=== PATIENT | female | born 1955 | race African-American/Black ===

== ENCOUNTER 2016-12-28 14:51 | Inpatient (IN) | payer OTHER ==
[~2016-12-28] VITALS: Ht 157.5 cm; Wt 128.6 kg
[2016-12-28] VITALS (7 sets, daily range): BP systolic 63–74; BP diastolic 31–45
--- NOTE | ~2016-12-28 | HC ---
[facility] [place] [address] CONSULTATION Name: HOLLY MAYERS Room #: 462-P ADM IN M.R.#: [id number] Admission: 12/28/16 Attend Phys: Saige Dunn Discharge: Date of : 55 Report #: [id number] THIS REPORT FOR: //name// CC: Peter Knowles ATTENDING PHYSICIAN: Dr. Manning. REASON FOR CONSULTATION: Acute on chronic kidney disease. HISTORY OF PRESENT ILLNESS: Unfortunately very little history is available on this 61-year-old patient, transferred from the longterm facility at [facility]. She within the last several months had a catastrophic ruptured thoracic aortic aneurysm. At [facility], had surgery, apparently had prolonged shock, prolonged multisystem failure, severe lung injury and has been unweanable from the ventilator since that time. I have no real records of any of that or any preexisting conditions. I will try to find family. There was none here right now, to try and get more history, very little in the way of any records have come with her. PAST MEDICAL HISTORY: Otherwise known. The records here show a history of hypertension, stroke, [place], hepatitis C and now the fact that she has been bleeding at the nursing center and transferred here. She is on the chronic vent as mentioned. REVIEW OF SYSTEMS: Cannot be taken. SOCIAL HISTORY: Cannot be taken. FAMILY HISTORY: Cannot be taken. PHYSICAL EXAMINATION: GENERAL: This is a very ill-appearing patient. There is bleeding from her gums, bleeding from her nose. She is awake and answering simple questions, following simple commands. SKIN: Quite swollen. SKELETAL: Shows her to be well developed, well nourished. HEENT: Extraocular movements are full. She has reasonable vision apparently. No scleral icterus. Hearing appears to be intact. Mucous membranes are moist. NECK: Slightly stiff. No JVD is appreciated. CHEST: Shows diminished breath sounds with some crackles and wheezes. HEART: Regular but distant. ABDOMEN: Distant, quite tender, decreased bowel sounds. EXTREMITIES: Show extreme swelling and anasarca throughout. LABORATORY DATA: Hemoglobin is 5.9. White count 7.2, platelets 182, 6% bands. Coags show an INR of 15.7, protime 163. Sodium 130, potassium 3.9, chloride 90, bicarbonate 25, BUN 209, creatinine 6.5, albumin 1.1. [address] [address] CONSULTATION Name: HOLLY MAYERS Room #: 462-P ADM IN M.R.#: [id number] Admission: 12/28/16 Attend Phys: Saige Dunn Discharge: Date of : 55 Report #: [id number] ASSESSMENT: Acute on chronic kidney disease. Reportedly her creatinine has been gradually rising with creatinine of 5 when she was at [facility] recently and was up to 6.5. Urine output is down. She is extremely volume overloaded. Certainly could be some degree of compartment syndrome or anasarca creating renal edema and decreased functioning. None of this though explains or addresses the fact that she has this severe coagulopathy, she is bleeding from old sites and she is quite hypotensive and with the heart situation also is unknown, I really have no records to go by. Again we will try to find the family. Certainly does not seem like a very good candidate for any dialysis with that type of therapy. Certainly would need some resuscitation of her coagulopathy for which we could even consider something like CRRT possibly in the morning after she receives blood and blood products from the hematology consult. We will certainly follow her carefully along with you in ICU. <ELECTRONICALLY SIGNED> By: Markie Soto MD 12/31/16 1115 1722 1001 Markie Soto MD /nt
--- NOTE | ~2016-12-28 | H ---
[facility] [place] [address] HISTORY AND PHYSICAL Name: HOLLY MAYERS Room #: 241-P ADM IN M.R.#: [id number] Admission: 12/28/16 Attend Phys: Saige Dunn Discharge: Date of : 55 Report #: [id number] THIS REPORT FOR: //name// CC: Peter Knowles DATE OF SERVICE: 12/28/2016 CHIEF COMPLAINT: Bleeding. HISTORY OF PRESENT ILLNESS: The patient is a 61-year-old female transferred from [facility] for evaluation of bleeding. All the history is obtained by reviewing electronic records and speaking with Dr. Knowles. She apparently had a ruptured thoracic aneurysm. There was emergently repair at [facility] some time ago. She had usual postoperative complications of respiratory failure requiring ventilation and subsequently placement of a tracheostomy tube and PEG tube. She subsequently transferred to [facility] for attempts at ventilator weaning, although this was unsuccessful. She has been deemed a non-weanable chronic ventilator patient at this point and has had additional complications of renal failure. It has been reported to me that her discharge creatinine from the LTAC facility was approximately 5.5 last week. This morning, the nursing staff at the skilled facility noted bleeding from multiple locations and she was directed to the Emergency Room. Thereupon admission, she had been found to have a significant coagulopathy and progressive renal failure with elevated BUN and creatinine, a significant anemia as well with hemoglobin 5.9. PAST MEDICAL HISTORY: Thoracic aneurysm repair, acute renal failure, hepatitis C, hypertension, history of stroke, history of myocardial infarction. PAST SURGICAL HISTORY: As above. FAMILY HISTORY: Unknown. SOCIAL HISTORY: Unknown. ALLERGIES: Unknown. MEDICATIONS: List is not available. I did speak with the nurse at the facility who said she had been receiving aspirin 81 mg. REVIEW OF SYSTEMS: She opens her eyes to her name. She nods yes or no and was denying any pain. PHYSICAL EXAMINATION: [facility] [address] [place] [address] HISTORY AND PHYSICAL Name: HOLLY MAYERS Room #: 241-P [facility].#: [id number] Admission: 12/28/16 Attend Phys: Saige Dunn Discharge: Date of : 55 Report #: [id number] VITAL SIGNS: Temperature 36.5, pulse 80, respirations 21, blood pressure 66/31 ranging 71/29, O2 sat 100% on ventilator. GENERAL: She is awake, opens her eyes and looks chronically ill. HEENT: There is some dry blood at the lips and around the tracheostomy site. HEART: Regular rhythm. LUNGS: Clear to auscultation. ABDOMEN: Protuberant, soft, scattered bowel sounds. PEG in place. EXTREMITIES: 1-2+ edema throughout. NEUROLOGIC: As mentioned, she does open her eyes to her name, seems to respond yes or no. LABORATORY DATA: Hemoglobin is 5.9, platelet count 182, INR is 15 with PTT of 71, fibrinogen is 286, sodium 130, potassium 3.9, creatinine 6.5, BUN 29. ASSESSMENT: 1. Disseminated intravascular coagulation. 2. Hemorrhagic shock. 3. Anemia due to acute blood loss. 4. Chronic respiratory failure, ventilator dependent. 5. History of thoracic aortic aneurysm. 6. Acute renal failure. PLAN: She will be admitted to ICU and blood products had been ordered. I have spoken to Dr. Knowles about her situation. This appears to be multiorgan failure situation which in this case would be terminal. I do not see how she can be a reasonable dialysis candidate given the respiratory failure and non-weanable vent. Multiple consultants have been called to provide support opinions, but she remains critically ill with a poor outcome expected. <ELECTRONICALLY SIGNED> By: Chase Manning MD 12/29/16 0856 1655 1726 Chase Manning MD /nt
--- NOTE | ~2016-12-28 | HC ---
[facility] [place] [address] CONSULTATION Name: HOLLY MAYERS Room #: 241-P ADM IN M.R.#: [id number] Admission: 12/28/16 Attend Phys: Saige Dunn Discharge: Date of : 55 Report #: [id number] THIS REPORT FOR: //name// CC: Eh Bella MD REASON FOR CONSULTATION: Coagulopathy and bleeding. HISTORY OF PRESENT ILLNESS: Minimal records on chart. I have not yet had a chance to talk to Dr. Manning. This is a 61-year-old female, if I understand correctly, had been over at , had an urgent or maybe emergent thoracic aneurysm repair and was at [facility] and then also in LTAC and it sounds like she had developed some bleeding recently. Since her thoracic aneurysm repair, she has had complications of respiratory failure with chronic ventilation support, also tracheostomy tube and a PEG tube for feeding. She was transferred to [facility] for attempts at ventilator weaning, this was unsuccessful. She was deemed non-weanable, chronic ventilator patient at that patient and was admitted and had additional complications of renal failure. I believe they have elected not to do dialysis. Evidently this past morning, she was noted to have bleeding on multiple occasions and was transferred to the emergency room. Here in the ER, her initial protime was 163.2 with an INR of 15.7, an APTT of 71.8 and a fibrinogen at 286. A venous blood gas showed O2 of 46.8, sat of 48.6. Portable chest x-ray showed cardiomegaly and pulmonary vascular congestion, mild interstitial opacities, likely interstitial pulmonary edema. The CBC at that time had a white count 7.2, hemoglobin 5.9, MCV of 79.5, platelets of 182. CMP done yesterday showed an AST of 14, total bilirubin 0.2, alk phos of 101, ALT less than 6, albumin of 1.1. Subsequently, also she received 2 units of FFP and her INR was 15, was down at 4.1 with protime of 42.5 and APTT of 54. Note that 1:1 mixes are pending. ____ nurses last ____, they gave her 2 more units of FFP and this morning at 6:44, her INR was 3.6 with a protime at 37 and APTT 49.0. Bleeding appears to have stopped from her trach and oral mucosa. There is some dry blood still present. Her CMP this morning has normal liver functions, albumin of 1.5. PAST MEDICAL HISTORY: As mentioned above is notable for thoracic aneurysm repair, renal failure, hepatitis C history, hypertension, history of stroke, history of [place]. No other records available. PAST SURGICAL HISTORY: As above. FAMILY HISTORY: Not known. SOCIAL HISTORY: Not known. ALLERGIES: In the computer. [facility] [address] [place] [address] CONSULTATION Name: HOLLY MAYERS Room #: 241-P ADM IN M.R.#: [id number] Admission: 12/28/16 Attend Phys: Saige Dunn Discharge: Date of : 55 Report #: [id number] MEDICATIONS: At this time in the hospital include meropenem 500 mg daily, ipratropium and albuterol respiratory therapy, fentanyl p.r.n., Zofran p.r.n., vancomycin pharm dosed. PHYSICAL EXAMINATION: GENERAL: The patient is an -[place]amb[place] female, slightly older age, lying in the ICU bed with a tracheostomy tube and then a warming blanket on. VITAL SIGNS: Her height is 5 feet 2 inches, 157.5 cm. Weight maybe 383.4 pounds or 128 kilograms. There was reported weight of 300 pounds. So, I am not sure if that is correct. Blood pressure currently 69/45, pulse 85, O2 sat 100, temperature 94.1 axillary. NEUROLOGIC: Face is symmetrical. The patient does open her eyes and according to the nurse was able to squeeze hands and communicate. To me, she looks startled and unaware and is withdrawn as I examined her, but there maybe some confusion, does not appear to be in pain. HEENT: Oropharynx, she will not open her mouth. For me, she turns her head away. I do not see any blood coming out of her nose or mouth. I see dry blood on her lips. That has been there for some time, it appears. NECK: No enlarged lymph nodes in the supraclavicular, cervical, axillary region. Does have the trach midline. No bleeding from the cuff or in the tube that I see. ABDOMEN: As best I can tell is slightly obese, nontender, ____ and is moving around on her exam. EXTREMITIES: Do have significant edema at the ankles and mid shins, probably 3-4 mm. ASSESSMENT AND PLAN: 1. Coagulopathy in setting of respiratory failure, renal failure, hepatitis C and possible sepsis. Partial correction with FFP suggests that the patient has low factors available, I am suspicious it is probably related to her severe protein calorie malnutrition and past history of hepatitis. We will check labs again later today to see if she has gone down further or needs additional FFP. We will also check a D-dimer to see if this might be acting as an inhibitor interfering with blood tests. We will also check factors 2, 5 and 10 to see if she might have factors inhibitor specifically. The patient is severely ill and I am afraid she is probably going to do poorly. 2. Anemia. Transfuse in order to keep hemoglobin above 7 or 7.5. 3. Respiratory failure, continues ventilatory support. 4. Possible sepsis. Cultures are drawn. The patient is on meropenem and vancomycin. 5. Renal failure. Defer to others. 6. Severe hypotension, pressors beginning. [facility] [address] [place] [address] CONSULTATION Name: HOLLY MAYERS Room #: [facility]- ADM IN .R.#: [id number] Admission: 12/28/16 Attend Phys: Saige Dunn Discharge: Date of : 55 Report #: [id number] 7. History of thoracic aneurysm repair, not currently an issue. 8. History of stroke, cannot assess at this time. We will follow with you. <ELECTRONICALLY SIGNED> By: Vernon Hewitt MD 12/30/16 0753 0739 2046 Vernon Hewitt MD /nt
--- NOTE | ~2016-12-28 | EKG ---
[place] [address] [address] [place] [facility] [address] [place] [address] ELECTROCARDIOGRAM REPORT Name: HOLLY MAYERS Room #: 241-P ADM IN M.R.#: [id number] Admission: 12/28/16 Attend Phys: Saige Dunn Discharge: Date of : 55 Report #: [id number] THIS REPORT FOR: //name// [facility] ED Test Date: 2016-12-28 Test Time: 15:32:36 Pat Name: HOLLY MAYERS Department: Room: 241 Gender: F Electrical Helper: SHAAN : 1955 Requested By: Shaka Coe Order Number: [id number] MD: Butch Riggs Measurements Intervals [place] Rate: 89 P: 256 [place]: 156 QRS: -2 QRSD: 99 T: 150 QT: 450 QTc: 548 Interpretive Statements Technically terrible tracing possible atrial fibrillation nonspecific ST and T-wave abnormality intraventricular conduction delay Electronically Signed On 12-30-2016 7:44:13 CDT by Butch Riggs [email or web address] <ELECTRONICALLY SIGNED> By: Butch Riggs MD, [facility] 12/30/16 0744 31 31 Butch Riggs MD, FAC /EPI
--- NOTE | ~2016-12-28 | D ---
[facility] [place] [address] DISCHARGE SUMMARY Name: HOLLY MAYERS Room #: 462-P [facility] IN M.R.#: [id number] Admission: 12/28/16 Attend Phys: Saige Dunn Discharge: 12/31/16 Date of : 55 Report #: [id number] THIS REPORT FOR: //name// CC: Peter Knowles DATE OF SERVICE: 12/31/2016 FINAL DIAGNOSES: 1. Acute renal failure. 2. Disseminated intravascular coagulopathy. 3. Chronic hypoxic respiratory failure. 4. Ventilator dependence. 5. Anemia of acute loss. 6. Severe protein-calorie malnutrition. HOSPITAL COURSE: The patient was admitted for evaluation of bleeding and she was found to have significant coagulopathy along with pdcqu-eq-kyopxdu renal failure. Her presentation to the halfway unit at [facility] had a creatinine above 5. Multiple consultants saw her during her stay. She was diagnosed with DIC likely related to the renal failure. She did receive 2 units of blood and 4 units of FFP. This temporized things initially. Because of her condition, she was not a candidate for hemodialysis. Ultimately, with multiple discussions with the patient and her daughter along with the assistance of palliative care team, her status was changed to a no code status because of her terminal comorbidities. She was treated supportively, but her condition really did not improve. Her INR began to creep back up after FFP administration. Her ventilator status was unchanged. Blood pressure remained variable, some times in the 70s-80 systolic, other times in the 90s-100s. She was treated empirically with antibiotics, but there were no definitive cultures. Her daughter asked me to reach out the [facility] to discuss the potential of transfer for ongoing care since this is where she had her thoracic aortic aneurysm repair surgery, which has left her on the ventilator. After discussing with their critical care physician, they did not feel there was anything that [facility] could offer her given her current status. This was relayed to her daughter, and in fact, the patient was refusing studies or care the day prior to discharge. Her daughter stated that the patient had verbalized her that she was tired and done and did not want anymore aggressive treatment. DISPOSITION: She will be transferred back to [facility]. She has a terminal situation and her prognosis is grave. The only medications at this point are morphine and Ativan for symptom control. <ELECTRONICALLY SIGNED> By: Chase Manning MD 01/02/17 0800 1427 1633 Chase Manning MD /nt
--- NOTE | ~2016-12-28 | HC ---
[facility] [place] [address] CONSULTATION Name: HOLLY MAYERS Room #: 241-P ADM IN M.R.#: [id number] Admission: 12/28/16 Attend Phys: Saige Dunn Discharge: Date of : 55 Report #: [id number] THIS REPORT FOR: //name// CC: Peter Manning MD DATE OF SERVICE: 12/28/2016 PULMONARY CONSULTATION REFERRING PROVIDER: Chase Manning M.D. REASON FOR CONSULTATION: Respiratory failure. CHIEF COMPLAINT: Hemorrhage. HISTORY OF PRESENT ILLNESS: Our group was asked to see the patient in consultation while hospitalized at [facility], seen in the emergency department as well as in the ICU. The patient unable to give any history, on mechanical ventilator. She is a 61-year-old woman transferred from [facility] to [facility] for further evaluation. Apparently, had a ruptured thoracic aortic aneurysm that was emergently repaired at [facility], had difficulty weaning from mechanical ventilatory support. Subsequently, had a tracheostomy tube placed and sent to long-term acute care at [facility], where she was not able to wean and went to [facility] where she was noted to have significant hemorrhaging earlier today. Apparently, the patient also has had some renal insufficiency as a consequence of chronic health conditions and her thoracic aneurysm rupture. She has not been on any hemodialysis and has no catheter at this time. The patient presented to the emergency department due to hemorrhage. She was noted to have significant multiple lab abnormalities including an INR of 16 despite no anticoagulant therapy. She is also noted to be anemic. ALLERGIES: None known. PAST MEDICAL HISTORY: 1. Thoracic aneurysm repair. 2. Acute renal failure. 3. History of hepatitis C. 4. Hypertension. 5. Prior CVA. 6. History of coronary artery disease. SOCIAL HISTORY: Unobtainable. FAMILY HISTORY: Unobtainable. [facility] [address] [place] [address] CONSULTATION Name: HOLLY MAYERS Room #: 241-P [facility].#: [id number] Admission: 12/28/16 Attend Phys: Saige Dunn Discharge: Date of : 55 Report #: [id number] REVIEW OF SYSTEMS: Unobtainable due to her current status. PHYSICAL EXAMINATION: VITAL SIGNS: Afebrile. Pulse 80s, respiratory rate 20, blood pressure 73/33, oxygen saturation 100% ventilator on assist control, tidal volume of 450, rate at 20, PEEP of 5, FiO2 50% with peak pressures in the 20s. GENERAL: This is a middle-aged woman on the vent, does not appear in any distress. ENT: Reveals a size #[address] LUNGS: Essentially clear. No wheezes or crackles. CARDIOVASCULAR: Heart regular. No murmurs appreciated. ABDOMEN: Distended with diminished bowel sounds. PEG tube in place. EXTREMITIES: Reveal right upper extremity PICC in place with 1+ edema. LABORATORY DATA: Chest x-ray reveals moderate-sized right pleural effusion with no infiltrates. White blood cell count is 7000, hemoglobin 6, hematocrit 18 and platelet count 182,000. Sodium 130, potassium 3.9, chloride 90, bicarbonate 25, BUN 209, creatinine 6.5 and glucose 166. Arterial blood gas on both settings revealed pH of 7.39, pCO2 of 41, pO2 of 98, bicarbonate of 24 and lactate is 2.01. IMPRESSION: 1. Disseminated intravascular coagulopathy of unclear etiology, sepsis would be likely potential culprit. 2. Shock, likely due to hemorrhage. 3. Wsrdl-zg-jwrtlgj renal failure. 4. Anemia. 5. Chronic respiratory failure, not weanable from the ventilator at this time. 6. Recent thoracic aortic aneurysm repair. SUGGESTIONS: 1. ICU care. 2. Repeat coagulation profile to ensure this is accurate. 3. Fresh frozen plasma and packed red blood cells. 4. Consider hematology evaluation. 5. Renal consultation. 6. Additional recommendations to follow. Thank you for requesting our suggestions. By: 2018 1249 Willis Bella MD /nt
[2016-12-28 15:15] LABS: MCH 26.3 pg (26.0-34.0); MCHC 33.1 g/dL (28.0-37.0); MCV 79.5 fL (80.0-100.0); PLATELET COUNT 182 thou/uL (150-400); RBC 2.26 mil/uL (4.20-5.00); RDW 19.8 % (10.5-14.5); WBC 7.2 thou/uL (4.0-11.0)
[2016-12-28 15:22] LABS: MANUAL DIFF YES
[2016-12-28 15:24] LABS: HEMOGLOBIN 5.9 gm/dL (12.0-15.0)
[2016-12-28 15:30] LABS: ANION GAP 15 mmol/L (7-16); BUN 209 mg/dL (7-18); CALCIUM 7.4 mg/dL (8.5-10.1); CHLORIDE 90 mmol/L (98-107); CO2 25 mmol/L (21-32); CREATININE 6.5 mg/dL (0.6-1.0); GLUCOSE 166 mg/dL (74-106); POTASSIUM 3.9 mmol/L (3.5-5.1); SODIUM 130 mmol/L (136-145)
[2016-12-28 15:33] LABS: ABG SAMPLE TYPE VENOUS; BE(vivo) -0.8 mmol/L (-2 to +3); HCO3 24.9 mmol/L (22.0-26.0); LACTATE 2.32 mmol/L (0.5-2.0); O2(CT) 4.3 mL/dL (15.0-23.0); PCO2 VENOUS 47.4 mmHg (41.0-51.0); PO2 VENOUS 28.1 mmHg (35.0-45.0); sO2 VENOUS 48.6 % (65.0-85.0); tCO2 26.4 mmol/L (24.0-30.0)
[2016-12-28 15:34] LABS: O2Hb VENOUS 46.8 (65.0-85.0)
[2016-12-28 15:35] LABS: STICK SITE LINE
[2016-12-28 15:36] LABS: APTT 71.8 Seconds (24.5-32.8); FIBRINOGEN 286.9 mg/dL (210-360); PROTIME 163.2 Seconds (9.3-11.4)
[2016-12-28 15:38] LABS: INR 15.7
[2016-12-28 15:45] LABS: ANISOCYTOSIS 1+; TOTAL CELL COUNT 100
[2016-12-28 15:53] LABS: ALBUMIN 1.1 g/dL (3.4-5.0); ALKALINE PHOSPHATASE 101 U/L (46-116); CK-MB MASS 0.9 ng/mL (<0.5-3.6); MAGNESIUM 2.2 mg/dL (1.8-2.4); SGOT 14 U/L (15-37); TOTAL BILIRUBIN 0.2 mg/dL (<0.1-1.0); TOTAL PROTEIN 5.9 g/dL (6.4-8.2); TROPONIN-I < 0.04 ng/mL (<0.04-0.07)
[2016-12-28 16:03] LABS: SGPT < 6 U/L (30-65)
[2016-12-28 16:13] LABS: NT-PRO BRAIN NAT PEPTIDE 57752 pg/mL (<300)
[2016-12-28 17:10] LABS: ABG COMMENT CMV; ABG SAMPLE TYPE ARTERIAL; BE(vivo) -1.1 mmol/L (-2 to +3); HCO3 23.9 mmol/L (22.0-26.0); LACTATE 2.01 mmol/L (0.5-2.0); O2(CT) 8.7 mL/dL (15.0-23.0); O2Hb 95.8 % (92.0-98.0); PCO2 40.7 mmHg (35.0-45.0); PO2 97.5 mmHg (80.0-100.0); STICK SITE R.RADIAL; TIDAL VOLUME 450 ml; pH 7.386 (7.360-7.450); sO2 97.3 % (92.0-98.0); tCO2 25.1 mmol/L (24.0-30.0)
[2016-12-28 21:25] LABS: PROTIME 42.5 Seconds (9.3-11.4)
[2016-12-28 21:27] LABS: INR 4.1
[2016-12-29] VITALS (45 sets, daily range): BP systolic 67–106; BP diastolic 42–77
[2016-12-29 06:22] LABS: MCH 27.1 pg (26.0-34.0); WBC 10.5 thou/uL (4.0-11.0)
[2016-12-29 06:23] LABS: HEMATOCRIT 23.6 % (37.0-47.0); MCHC 33.8 g/dL (28.0-37.0); MCV 80.3 fL (80.0-100.0); PLATELET COUNT 179 thou/uL (150-400); RBC 2.95 mil/uL (4.20-5.00); RDW 18.3 % (10.5-14.5)
[2016-12-29 06:27] LABS: MANUAL DIFF YES
[2016-12-29 06:39] LABS: ALBUMIN 1.5 g/dL (3.4-5.0); ALKALINE PHOSPHATASE 106 U/L (46-116); ANION GAP 17 mmol/L (7-16); BUN 193 mg/dL (7-18); CALCIUM 8.1 mg/dL (8.5-10.1); CHLORIDE 89 mmol/L (98-107); CO2 24 mmol/L (21-32); CREATININE 6.4 mg/dL (0.6-1.0); GLUCOSE 160 mg/dL (74-106); MAGNESIUM 2.2 mg/dL (1.8-2.4); PHOSPHORUS 6.1 mg/dL (2.5-4.9); POTASSIUM 4.1 mmol/L (3.5-5.1); SGOT 18 U/L (15-37); SODIUM 130 mmol/L (136-145); TOTAL BILIRUBIN 0.3 mg/dL (<0.1-1.0); TOTAL PROTEIN 6.7 g/dL (6.4-8.2)
[2016-12-29 06:42] LABS: INR 3.6
[2016-12-29 06:54] LABS: SGPT < 6 U/L (30-65)
[2016-12-29 09:53] LABS: ABSOLUTE NEUTROPHILS 8.1 thou/uL (1.4-8.2); TOTAL CELL COUNT 100
[2016-12-29 09:54] LABS: POLYCHROMASIA SLIGHT
[2016-12-29 09:55] LABS: ANISOCYTOSIS 2+; HYPOCHROMASIA 2+
[2016-12-29 13:20] LABS: PROTIME 49.9 Seconds (9.3-11.4)
[2016-12-29 13:24] LABS: INR 4.8
[2016-12-30 13:50] LABS: ALBUMIN 1.2 g/dL (3.4-5.0); CALCIUM 7.4 mg/dL (8.5-10.1); CREATININE 6.6 mg/dL (0.6-1.0); PHOSPHORUS 6.1 mg/dL (2.5-4.9); POTASSIUM 4.4 mmol/L (3.5-5.1)
[2016-12-30 15:16] LABS: MCH 26.6 pg (26.0-34.0); WBC 11.3 thou/uL (4.0-11.0)
[2016-12-30 15:17] LABS: HEMATOCRIT 20.5 % (37.0-47.0); MCHC 32.8 g/dL (28.0-37.0); MCV 81.1 fL (80.0-100.0); RBC 2.52 mil/uL (4.20-5.00); RDW 18.4 % (10.5-14.5)
[2016-12-30 15:24] LABS: HEMOGLOBIN 6.7 gm/dL (12.0-15.0)
[2016-12-30 15:26] LABS: ALBUMIN 1.3 g/dL (3.4-5.0); ALKALINE PHOSPHATASE 94 U/L (46-116); ANION GAP 16 mmol/L (7-16); BUN 207 mg/dL (7-18); CALCIUM 7.8 mg/dL (8.5-10.1); CHLORIDE 92 mmol/L (98-107); CO2 24 mmol/L (21-32); CREATININE 6.6 mg/dL (0.6-1.0); DIRECT BILIRUBIN < 0.1 mg/dL (<0.1-0.3); GLUCOSE 106 mg/dL (74-106); POTASSIUM 4.4 mmol/L (3.5-5.1); SGOT 16 U/L (15-37); SODIUM 132 mmol/L (136-145); TOTAL BILIRUBIN 0.3 mg/dL (<0.1-1.0); TOTAL PROTEIN 5.9 g/dL (6.4-8.2)
[2016-12-30 15:30] LABS: PROTIME 89.7 Seconds (9.3-11.4)
[2016-12-30 15:31] LABS: INR 8.6
[2016-12-30 15:35] LABS: SGPT < 6 U/L (30-65)
[2016-12-30 20:06] VITALS: BP 85/46
[2016-12-31 05:17] VITALS: BP 111/88
[2016-12-31 05:57] LABS: ALBUMIN 1.2 g/dL (3.4-5.0); CALCIUM 7.9 mg/dL (8.5-10.1); CREATININE 6.8 mg/dL (0.6-1.0); PHOSPHORUS 6.3 mg/dL (2.5-4.9); POTASSIUM 4.3 mmol/L (3.5-5.1)
[2016-12-31 07:37] VITALS: BP 95/72
[2016-12-31] MEDS ORDERED: DUONEB 2.5-0.5 M3 ML INH (13:09)
[2016-12-31] MEDS ORDERED: MSL20MG/ML PO (13:11)
[2016-12-31] MEDS ORDERED: LORAZEPAM 22 MG/1 ML SUBLING (13:12)
== END 2016-12-31 16:13 | DRG 813 ==
LOC: ER 14:51 → EROBS 15:41 → ICU 15:41 → 4W 12-30 19:10
PROVIDERS: Emergency Medicine; Internal Medicine; Internal Medicine Geriatric Medicine; Internal Medicine Hematology & Oncology; Internal Medicine Nephrology
DX: D65 Disseminated intravascular coagulation [defibrination syndrome] (principal); E43 Unspecified severe protein-calorie malnutrition; R57.0 Cardiogenic shock; N17.9 Acute kidney failure, unspecified; D62 Acute posthemorrhagic anemia; Z68.43 Body mass index [BMI] 50.0-59.9, adult; K92.2 Gastrointestinal hemorrhage, unspecified; J96.11 Chronic respiratory failure with hypoxia; Z99.11 Dependence on respirator [ventilator] status; X58.XXXA Exposure to other specified factors, initial encounter; N18.9 Chronic kidney disease, unspecified; I12.9 Hypertensive chronic kidney disease with stage 1 through stage 4 chronic kidney disease, or unspecified chronic kidney disease; I25.10 Atherosclerotic heart disease of native coronary artery without angina pectoris; I71.2 Thoracic aortic aneurysm, without rupture; I95.9 Hypotension, unspecified; Z93.0 Tracheostomy status; Z93.1 Gastrostomy status; Z86.73 Personal history of transient ischemic attack (TIA), and cerebral infarction without residual deficits; I25.2 Old myocardial infarction; Z86.19 Personal history of other infectious and parasitic diseases
CPT/HCPCS: 10045; 10078; 85076